=== PATIENT | female | born 1995 | race African-American/Black ===

== ENCOUNTER 2017-07-23 13:40 | Observation (INO) ==
[2017-07-23 14:45] LABS: Apearance,Urine CLOUDY (Clear); Bacteria,Urine Occasional /HPF (Few); Bilirubin,Urine Negative (Negative); Blood, Urine Large mg/dL (Negative); Glucose,Urine (UA) Negative (Negative); Ketones,Urine Negative (Negative); Mucus,Urine Occasional /LPF (Occasional); Nitrite,Urine Negative (Negative); Protein,Urine 100 MG/DL; RBC,Urine 1351 /HPF (0-4); Squamous Epithelial Cell,Urine Few /HPF (0-10); Urine Color Red (Yellow); Urine Specific Gravity 1.016 (1.001-1.035); WBC,Urine 109 /HPF (0-6)
--- NOTE | 2017-07-23 15:10 | Emergency Department Note ---
Jorge Marte Manpreet, am scribing for, and in the presence of, Lora Cruz DO 15: 06. IAnthony Debra, DO, personally performed the services described in this documentation, ascribed by Nolan Patel in my presence, and it is both accurate and complete 509 . Arrival - Arrival Chief Complaint: Urogenital - Female Stated Complaint: Bleeding badly. Lower stomach pain ED Nursing Triage Note: c/o vaginal bleeding onset last pm. Saturating approx 4 pads per hour. +lower abdominal pain. Describes as sharp. Menstrual period is approx 3 weeks late. Mode of Arrival: Ambulatory Limitations: No Limitations Source: Patient - History of Present Illness HPI Narrative: Pt is a 22 y/o female who presents to the ED with CC of sharp Abd pain that began last night. Pt also c/o being late in her menstrual cycle. Pt has been before that was a miscarriage. no living children. Pt denies any fever, chills, N/V/D or dysuria. No other pains/complaints reported to the ED. states that she has been bleeding at least 3 pads per hour. denies any dizziness or lightheadedness. Onset (ago): hour(s) (Last night) Consistency: constant Severity: mild Date of Last Menstrual Period: 05/2017 Allergies/Adverse Reactions: Allergies Allergy/AdvReac Type Severity Reaction Status Date / Time Penicillins Allergy RASH Verified 07/23/17 14:13 Home Medications: Home Medications Medication Instructions Recorded Confirmed Type No Known Home Medications [No 07/23/17 07/23/17 History Known Home Medications] Review of System - Review of System 12 point system: reviewed and no additional remarkable complaints except as stated - Review of System Constitutional: Absent: chills, fever Respiratory: Absent: cough, respiratory distress, wheezing Cardiovascular: Absent: chest pain, palpitations Gastrointestinal: Present: abdominal pain. Absent: nausea, vomiting, diarrhea Genitourinary female: Absent: dysuria, discharge, frequency Musculoskeletal: Absent: arm pain Neurological: Absent: headache Medical,Surgical,& Family Hx - Social History Smoking Status: Never smoker Frequency of Alcohol Use: None Type of Drug Use: None Exam Vital Signs: Vital Signs Temperature 98.2 F 07/23/17 14:33 Pulse Rate 63 07/23/17 16:49 Respiratory Rate 20 07/23/17 16:49 Blood Pressure 104/77 07/23/17 16:49 O2 Sat by Pulse Oximetry 100 07/23/17 14:07 - General General appearance: alert - Head Head exam: Present: atraumatic, normocephalic, normal inspection - Eye Eye exam: Present: normal appearance, PERRL, EOMI - ENT ENT exam: Present: normal exam, normal oropharynx, mucous membranes moist, TM's normal bilaterally - Neck Neck exam: Present: normal inspection, full ROM, trachea midline. Absent: tenderness - Chest Chest inspection: Present: normal inspection - Respiratory Respiratory exam: Present: normal lung sounds bilaterally. Absent: accessory muscle use, respiratory distress - Cardiovascular Cardiovascular exam: Present: regular rate, normal rhythm, normal heart sounds - Abdominal Exam Abdominal exam: Present: soft, tenderness (Suprapubic tenderness ), normal bowel sounds. Absent: distention - Extremities Exam Extremities exam: Present: normal inspection, full ROM. Absent: tenderness - Back Exam Back exam: Present: normal inspection, full ROM. Absent: tenderness - Neurological Exam Neurological exam: Present: alert, oriented X3, reflexes normal - Psychiatric Psychiatric exam: Present: normal affect, normal mood - Skin Skin exam: Present: warm, dry, intact, normal color. Absent: pallor Course Course Narrative: pt bp remains stable. spoke with DR Angeles who wants pt admitted and will come see patient today. Patient is stable at this time. Results - Labs Lab Results: I have reviewed the patients labs Labs: Laboratory Tests 07/23/17 07/23/17 14:20 14:20 Urine Color Red Urine Appearance Cloudy Urine pH 6.0 Ur Specific [place] 1.016 Urine Protein 100 Urine Glucose (UA) Negative Urine Ketones Negative Urine Blood Large Urine Nitrate Negative Urine Bilirubin Negative Urine Urobilinogen 4.0 H Urine Leukocytes Negative Urine RBC 1351 Urine WBC 109 Urine WBC Clumps Occasional Ur Squamous Epith Cells Few Urine Bacteria Occasional Urine Mucus Occasional Ur Culture Indicated? Results to follow Urine Test Negative - Diagnostic Findings Procedure: CT Abdomen and Pelvis: report reviewed by me ("CT Abd/Pel w/o Con: Very minimal posterior basilar dependent atelectatic changes are noted bilaterally. Lung bases are otherwise clear. There is no pleural or pericardial effusion.") Disposition Clinical Impression: Ovarian torsion Case discussed with: patient Disposition: Still a Patient Condition: Stable Time of Disposition: 17:48
--- NOTE | 2017-07-23 15:57 | CT Report ---
CT abdomen pelvis wo con Indication: Suprapubic pain, bleeding Comparison: None. Technique: CT of the abdomen and pelvis was performed without administration of intravenous contrast. Coronal and sagittal reformatted images were additionally created and submitted for review. The total DLP is 187.3 mGy*cm. Dose reduction: This CT exam was performed using one or more of the following dose reduction techniques: Automated exposure control, automated adjustment of the mA and/or KV according to patient size, or use of iterative reconstruction technique. Findings: Very minimal posterior basilar dependent atelectatic changes are noted bilaterally. Lung bases are otherwise clear. There is no pleural or pericardial effusion. ABDOMEN: Liver/Gallbladder: Unenhanced liver is grossly unremarkable. There is no biliary ductal dilatation or gallstones visualized. There is suggestion of dilatation of the hepatic veins and intrahepatic/infrahepatic IVC, which is not well evaluated given lack of intravenous contrast. Spleen: No acute findings. Pancreas: No acute findings. Adrenals: Within normal limits in appearance. Kidneys: Kidneys are symmetric in size with no evidence of hydronephrosis. No renal stones are visualized. Bowel/mesentery: Small bowel is nondilated. There is no free fluid/air within the abdomen. The appendix appears normal. There is no mesenteric adenopathy. Lack of intravenous/oral contrast limits evaluation. Moderate stool is noted throughout the colon which is otherwise unremarkable. Retroperitoneum: No evidence of aortic aneurysm or significant retroperitoneal adenopathy. PELVIS: Trace free fluid is noted in the dependent pelvis, which may be physiologic but is otherwise nonspecific. Uterus and left ovary appear grossly unremarkable for CT technique. In the right adnexa, there is a prominent hypodense lesion measuring up to 5 cm, which may represent a large ovarian cyst. This lesion demonstrates central water density by CT measurements. Bladder appears grossly unremarkable for degree of distention and lack of intravenous contrast. There is no adenopathy identified within the pelvis. BONES: No acute or suspicious osseous abnormalities are identified. Punctate sclerotic lesion right sacral ala likely represents a benign bone island but is otherwise too small to definitively characterize. IMPRESSION: 1. 5 cm hypodense right adnexal lesion likely represents an ovarian cyst which is otherwise poorly evaluated given lack of intravenous contrast. This could be confirmed with pelvic ultrasound if clinically indicated. 2. Normal appendix. No other acute abnormality within the abdomen or pelvis to explain patient's symptoms. Incidental suggestion of moderate hepatic vein and IVC dilatation which is of uncertain significance. 07/23/2017 3:46 PM PROCEDURE INTERPRETED AT [facility] DEPARTMENT OF RADIOLOGY Final Report Signed by: Vikram Browne
[2017-07-23] MEDS ORDERED: SODIUM CHLORIDE 0.9% 1,000 ML IV STA (17:23)
--- NOTE | 2017-07-23 17:23 | Ultrasound Report ---
Exam: US pelvic complete Date: 07/23/2017 4:08 PM Comparison: None Indication: Pelvic pain Findings: Uterus:5.8 cm x 2.5 cm x 3.5 cm. Endometrial thickness is within normal limits at 0.5 cm. No free fluid is visualized. Right ovary:6.1 cmx5.7 cmx4.1 cm. Diffuse heterogeneous hypoechoic appearance of the parenchyma is noted. There is minimal color Doppler blood flow noted. Left ovary:3.7 cmx2.8 cmx2.5 cm color Doppler blood flow is noted within the parenchyma. Small 1.6 cm cyst is also suggested. Free fluid: No significant free fluid. Bladder: Grossly unremarkable as imaged Impression: 1. Asymmetrically enlarged right ovary with diffuse heterogeneous hypoechoic appearance of parenchyma with minimal internal blood flow visualized on color doppler. Findings are concerning for ovarian torsion. 2. Otherwise, no acute sonographic abnormality in the nongravid female pelvis. No significant free fluid. Critical findings discussed with Dr. Cruz via telephone 5:10 PM on the day of the examination. Ultrasound images were stored and captured PROCEDURE INTERPRETED AT [facility] DEPARTMENT OF RADIOLOGY Final Report Signed by: Vikram Browne
[2017-07-23 17:47] LABS: Basophils # 0.1 10*3/uL (0.0-0.2); Basophils % 0.8 % (0.0-0.8); Eosinophils # 0.2 10*3/uL (0.0-0.87); Eosinophils % 3.3 % (0.00-10.9); Hematocrit 38.8 VOL% (35.7-47.0); Hemoglobin 13.6 GM/DL (12.0-16.0); Immature Granulocytes % 0.2 %; Immature Granulocytes Absolute 0.01 #; Lymphocytes # 3.1 10*3/uL (1.4-4.0); Lymphocytes % 46.5 % (21.3-54.2); Mean Corpuscular HGB Conc 35.1 GM/DL (32-36); Mean Corpuscular Hemoglobin 32 PG (27-34); Mean Corpuscular Volume 89.8 FL (87-102); Mean Platelet Volume 10.7 FL (9.6-12.0); Monocytes # 0.6 10*3/uL (0.11-0.8); Neutrophils # 2.7 10*3/uL (1.4-7.4); Neutrophils % 40.2 % (38.7-73.9); Platelet Count 222 T/CUMM (130-400); Red Blood Count 4.32 MC/CUMM (3.8-5.5); White Blood Count 6.7 T/CUMM (4-12)
[2017-07-23] MEDS ORDERED: SODIUM CHLORIDE 0.9% 1,000 ML IV SCH (18:00)
[2017-07-23 18:17] LABS: Alanine Aminotransferase 16 U/L (13-56); Albumin 3.7 G/DL (3.4-5.0); Alkaline Phosphatase 64 U/L (45-117); Aspartate Amino Transferase 18 U/L (0-37); Bilirubin,Total < 0.39 MG/DL (0.2-1.0); Blood Urea Nitrogen 7 MG/DL (7-18); Calcium 9.1 MG/DL (8.5-10.1); Total Protein 7.2 G/DL (6.4-8.3)
[2017-07-23 18:18] LABS: Glucose 79 MG/DL (74-106); Osmolality,Calculated 273.5 MOS/KG (273-304); Potassium 4.1 MMOL/L (3.5-5.1); Sodium 139 MMOL/L (136-145)
[2017-07-23 18:31] LABS: INR 1.1; PT Patient Result 11.6 SECS; Partial Thromboplastin Time 30.8 SECS (0-40)
--- NOTE | 2017-07-23 18:57 | OB/GYN History & Physical ---
History of Present Illness Chief complaint: 22yo with heavy bleeding and RLQ pain History of present illness: Ms. Francis is a 22 year old female who presented to ER with complaints of heavy bleeding and RLQ pain since last evening. Prior to this pt was doing well without complaints. Lab work WNL. HCG negative. US showed an enlarged right ovary with reportedly minimal blood flow on Doppler. Pt is in no obvious distress. Somewhat evasive with her answers and I must ask very detailed questions to get what seems to be the correct answer. PMH/PSH: negative [employer]: Last SA Saturday without protection. Trying to conceive. Last DepoProvera end of January. Last Pap October 2016 reportedly wnl. Hx of miscarriage at 15 yoa. SH: [employer] [address] [employer] for past 3 wks. Plans to get GED. Denies use of alcohol, tobacco or drugs. 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 Vitals: Vital Signs Temp Pulse Pulse Resp BP BP Pulse Ox 07/23/17 18:15 97.2 F L 86 18 111/76 07/23/17 16:49 63 20 104/77 07/23/17 14:33 98.2 F 111 H 16 106/65 07/23/17 14:07 98.2 F 111 H 16 109/65 100 Pulse Ox 07/23/17 18:15 99 07/23/17 16:49 07/23/17 14:33 07/23/17 14:07 General appearance: normal weight, no acute distress - Head Head exam: Present: normal inspection, normocephalic - Eye Eye exam: Present: EOMI - Respiratory Respiratory exam: Present: clear to auscultation bilaterally - Cardiovascular Cardiovascular exam: Present: regular rate and rhythm - GI/Abdominal GI/Abdominal exam: Present: soft (mild RLQ TTP, no rebound) - Extremities Exam Extremities exam: Present: normal inspection - Neurological Exam Neurological exam: Present: alert, oriented X3 - Psychiatric Psychiatric exam: Present: other (guarded) - Skin Skin exam: Present: normal color, warm Assessment and Plan (1) RLQ abdominal pain Status: Acute Assessment and plan: possible ovarian torsion. Will make NPO after MN. Check US in AM for right ovary blood flow. Possibly proceed with Diagnostic Robotic Laparoscopy, surgery as indicated, poss oophorectomy, poss open. Current Visit: Yes (2) Ovarian enlargement, right Status: Acute Assessment and plan: See above Current Visit: Yes Results - Labs CBC & BMP: 07/23/17 17:40 07/23/17 17:40
[2017-07-23] MEDS: MORPHINE 2 MG/1 ML SYRINGE IV PRN (19:07)
[2017-07-23] MEDS: ONDANSETRON 4 MG/2 ML VIAL IV PRN (19:07)
[2017-07-24] MEDS: LACTATED RINGERS 1,000 ML IV SCH ×2 (01:56→01:57)
[2017-07-24] MEDS: MORPHINE 2 MG/1 ML SYRINGE IV PRN (09:00)
[2017-07-24] MEDS: ONDANSETRON 4 MG/2 ML VIAL IV PRN (09:05)
--- NOTE | 2017-07-24 09:21 | Ultrasound Report ---
Exam: US pelvic limited Date: 07/24/2017 Comparison: None Indication: Reevaluate right ovary Findings: Transabdominal imaging was obtained. Uterus surgically absent Endometrial Thickness: n/a Right ovary:5.7 cmx5.7 cmx3.7 cm exam reveals small follicular cysts present. Slightly complex cyst measures 4.5 x 3.4 x 5.1 cm also present. Color flow is present. Left ovary nonvisualized Is surgically absent Free fluid: None Bladder: Unremarkable Impression: 1. Previous hysterectomy and left oophorectomy. 2. Complex cyst of the right ovary with normal appearing color flow without evidence of torsion. Blood flow is primarily however along the periphery with some blood flow within the ovary proper noted Ultrasound images were stored and captured PROCEDURE INTERPRETED AT [facility] DEPARTMENT OF RADIOLOGY Final Report Signed by: Dr. Dre Bobo
[2017-07-24 10:24] VITALS: BP 94/68
== END 2017-07-24 11:10 | disposition home or self-care (01) ==
LOC: EDBD → N.ED 13:40 → N.EDINP 17:48 → INTOOBSV 17:48 → N.EDINP 18:14 → N.OB 18:17
PROVIDERS: ADMIT Obstetrics & Gynecology; ATTEND Obstetrics & Gynecology